=== PATIENT | male | born 1990 | race Caucasian/White ===

== ENCOUNTER 2017-01-29 21:10 | Emergency (ER) | payer SELFPAY ==
[~2017-01-29 21:10] MED LIST: AUGMENTIN875 MG PO; NORCO 5/325 TAB1 TAB PO
== END 2017-01-29 21:57 ==
LOC: EDMED 21:10
DX: S06.0X0A Concussion without loss of consciousness, initial encounter (principal); S01.00XA Unspecified open wound of scalp, initial encounter; W20.8XXA Other cause of strike by thrown, projected or falling object, initial encounter; Y92.69 Other specified industrial and construction area as the place of occurrence of the external cause; Y99.0 Civilian activity done for income or pay